=== PATIENT | female | born 1950 | race Caucasian/White ===

== ENCOUNTER 2017-04-25 01:55 | Inpatient (IN) | payer OTHER, MEDICARE ==
[~2017-04-25] VITALS: Ht 162.6 cm; Wt 95.2 kg
[2017-04-25 02:36] LABS: BASO % 0.4 % (0.0-2.0); EOS # 0.1 (0.0-0.7); EOS % 2.7 % (0-4.0); GRAN # 2.7 (1.4-6.5); GRAN % 57.2 % (42.2-75.2); LYMPH # 1.5 (1.2-3.4); LYMPH % 32.3 % (20.0-51.0); MEAN CELL VOLUME 84 fl (80.0-100.0); MEAN CORPUSCULAR HGB CONC 33 g/dl (33.0-37.0); MEAN PLATELET VOLUME 8.8 fl (7.4-10.4); MONO # 0.3 (0.1-0.6); PLATELET COUNT 182 K/mm3 (130-400); RED BLOOD COUNT 3.97 M/mm3 (4.10-5.30); REDCELL DISTRIBUTION WIDTH-CV 14.1 % (11.5-14.5)
[2017-04-25 02:37] LABS: HEMATOCRIT 33.5 % (37.0-47.0); HEMOGLOBIN 10.9 g/dl (12.5-16.0); MEAN CORPUSCULAR HEMOGLOBIN 27 pg (27.0-31.0)
[2017-04-25 02:43] LABS: INR 0.9 (0.8-3.0); PROTHROMBIN TIME 10.5 SECONDS (9.7-12.8)
[2017-04-25 02:46] LABS: PARTIAL THROMBOPLASTIN TIME 25.2 SECONDS (26.0-37.0)
[2017-04-25 02:47] LABS: ALBUMIN 3.6 gm/dL (3.5-5.0); BILIRUBIN,TOTAL 0.4 mg/dL (0.0-1.0); CALCIUM 8.6 mg/dL (8.4-10.2); CREATININE, serum 0.65 mg/dL (0.52-1.25); POTASSIUM 3.7 mmol/L (3.4-5.0); TOTAL PROTEIN 6.3 gm/dL (6.4-8.2)
[2017-04-25 09:18] VITALS: BP 125/59; PULSE 78; TEMP 98.6
[2017-04-25 09:20] VITALS: BP 125/59; PULSE 75; TEMP 98.6
[2017-04-25 13:36] VITALS: BP 125/58; PULSE 72; TEMP 98.5
[2017-04-25 17:14] VITALS: BP 123/60; PULSE 66; TEMP 97.2
[2017-04-25 22:00] VITALS: BP 92/44; PULSE 71; TEMP 98.9
[2017-04-26 05:23] VITALS: BP 106/47; PULSE 71; TEMP 99.2
[2017-04-26 09:46] VITALS: BP 114/60; PULSE 74; TEMP 99
[2017-04-26 14:26] VITALS: BP 129/61; PULSE 80; TEMP 98.1
[2017-04-26 17:36] VITALS: BP 128/60; PULSE 86; TEMP 100.2
[2017-04-26 19:00] VITALS: TEMP 99.7
[2017-04-26 20:42] VITALS: BP 130/52; PULSE 89; TEMP 99
[2017-04-27 00:44] VITALS: BP 125/59; PULSE 93; TEMP 98.2
[2017-04-27 05:52] VITALS: BP 148/61; PULSE 81; TEMP 98.2
[2017-04-27 10:20] VITALS: BP 129/66; PULSE 77; TEMP 98
[2017-04-27 14:40] VITALS: BP 136/73; PULSE 80; TEMP 97.4
[2017-04-27 18:22] VITALS: BP 136/73; PULSE 80; TEMP 97.4
[2017-04-27 23:10] VITALS: BP 130/64; PULSE 67; TEMP 98.1
[2017-04-28 05:40] VITALS: BP 119/60; PULSE 67; TEMP 97.3
[2017-04-28 09:20] VITALS: BP 146/77; PULSE 75; TEMP 97.9
[2017-04-28 13:07] VITALS: BP 147/69; PULSE 72; TEMP 98.7
[2017-04-28 17:07] VITALS: BP 163/76; PULSE 83; TEMP 97.8
[2017-04-28 22:15] VITALS: BP 136/65; PULSE 81; TEMP 98.8
[2017-04-29] VITALS (11 sets, daily range): BP systolic 110–149; BP diastolic 51–67; PULSE 70–84; TEMP 98.3–98.9
[2017-04-29] MEDS ORDERED: ASPI325T6 PO (16:11)
[2017-04-29] MEDS ORDERED: ROXICODONE 55 MG/TAB PO (16:12)
[2017-04-30 00:30] VITALS: BP 125/50; PULSE 66; TEMP 98.7
[2017-04-30 05:34] VITALS: BP 120/60; PULSE 70; TEMP 98.3
[2017-04-30 10:38] VITALS: BP 135/61; PULSE 97; TEMP 98.4
[2017-04-30 14:19] VITALS: BP 138/66; PULSE 83; TEMP 98.7
[2017-04-30 17:50] VITALS: BP 144/80; PULSE 75; TEMP 98.5
[2017-04-30 20:40] VITALS: BP 141/62; PULSE 82; TEMP 98.5
[2017-05-01 00:49] VITALS: BP 136/65; PULSE 76; TEMP 98.5
[2017-05-01 04:35] VITALS: BP 138/68; PULSE 73; TEMP 99.1
[2017-05-01 09:30] VITALS: BP 140/67; PULSE 86; TEMP 97.8
== END 2017-05-01 13:20 | disposition home or self-care (01) | DRG 494 ==
LOC: COL.ER 01:55 → SURG 04:36
PROVIDERS: Emergency Medicine; Orthopaedic Surgery Sports Medicine
PROC: 0QSJ04Z Reposition Right Fibula with Internal Fixation Device, Open Approach (ICD-10-PCS; principal; 2017-04-29 10:00)
PROC: 0QSG04Z Reposition Right Tibia with Internal Fixation Device, Open Approach (ICD-10-PCS; 2017-04-29 10:00)
DX: S82.841B Displaced bimalleolar fracture of right lower leg, initial encounter for open fracture type I or II (principal); W00.0XXA Fall on same level due to ice and snow, initial encounter; Y93.K1 Activity, walking an animal
CPT/HCPCS: A9284; C1713; J0295; J0690; J1100; J1170; J1885; J2250; J2270; J2405; J2704; J2795; J3010; J7030; J7120; Q4045

== ENCOUNTER 2018-09-14 20:08 | Emergency (ER) | payer SELFPAY ==
[~2018-09-14] VITALS: Ht 162.6 cm; Wt 86.4 kg
[~2018-09-14 20:08] MED LIST: ASPI325T6 PO; ROXICODONE 55 MG/TAB PO
[2018-09-14 20:19] VITALS: TEMP 98.6
[2018-09-14 22:52] VITALS: BP 168/80; PULSE 72
== END 2018-09-14 22:53 | disposition home or self-care (01) ==
LOC: COL.ER 20:08
DX: S62.101A Fracture of unspecified carpal bone, right wrist, initial encounter for closed fracture (principal); S60.211A Contusion of right wrist, initial encounter; S80.02XA Contusion of left knee, initial encounter; Z90.710 Acquired absence of both cervix and uterus; W01.0XXA Fall on same level from slipping, tripping and stumbling without subsequent striking against object, initial encounter; Y92.59 Other trade areas as the place of occurrence of the external cause
CPT/HCPCS: Q4021